=== PATIENT | male | born 1965 | race African-American/Black ===

== ENCOUNTER 2018-09-25 06:19 | Emergency (ER) | payer OTHER ==
[~2018-09-25] VITALS: Ht 182.9 cm; Wt 83.9 kg
[2018-09-25 06:26] VITALS: BP 209/138
[2018-09-25] MEDS ORDERED: FURO-570 PO (06:31)
[2018-09-25] MEDS: ASPIRIN 325 MG TAB PO ONE (06:47)
[2018-09-25] MEDS: NITROGLYCERIN 0.4 MG TAB SL ONE (06:47)
[2018-09-25 07:21] LABS: BASOPHILS # (AUTO) 0.1 K/uL (0.00-0.22); BASOPHILS % (AUTO) 1.1 % (0.0-2.0); EOSINOPHILS % (AUTO) 0.4 % (0.0-4.0); HEMATOCRIT 51.6 % (36-52); HEMOGLOBIN 17.6 g/dL (12.0-18.0); LYMPHOCYTES # (AUTO) 0.6 K/uL (2.0-11.5); LYMPHOCYTES % (AUTO) 10.1 % (20.5-51.1); MEAN CORPUSCULAR HEMOGLOBIN 31 pg (27-31); MEAN CORPUSCULAR HGB CONC 34 g/dL (33-37); MEAN CORPUSCULAR VOLUME 90.4 fL (80-94); MONOCYTES # (AUTO) 0.9 K/uL (0.8-1.0); MONOCYTES % (AUTO) 16.6 % (1.7-9.3); NEUTROPHILS % (AUTO) 71.8 % (42.2-75.2); PLATELET COUNT (AUTO) 147 K/uL (140-450); RED BLOOD CELL COUNT(AUTO) 5.71 MIL/uL (4.20-6.10); WHITE BLOOD COUNT (AUTO) 5.6 K/uL (4.8-10.8)
[2018-09-25 07:37] LABS: CARBON DIOXIDE 24.3 mmol/L (21-32); CREATININE 1.3 mg/dL (0.7-1.3); POTASSIUM 3.3 mmol/L (3.5-5.1)
[2018-09-25] MEDS: LISINOPRIL 20 MG TAB PO ONE (07:53)
[2018-09-25] MEDS: MORPHINE SULFATE 4 MG/ML SYR IM ONE (07:54)
[2018-09-25 08:15] LABS: ALBUMIN 3.7 g/dL (3.4-5.0); TOTAL BILIRUBIN 0.6 mg/dL (0.0-1.0)
[2018-09-25 08:19] LABS: CREATINE KINASE MB 2.8 ng/mL (0-3.6)
[2018-09-25] MEDS ORDERED: HEPARIN PER PHARMACY MC PRN (08:45)
[2018-09-25] MEDS: ASPIRIN 81 MG TAB.CHEW PO ONE (09:09)
[2018-09-25] MEDS: hePARIN / DEXT 5% PREMIX 250 ML IV ONE (10:02)
[2018-09-25 11:40] VITALS: BP 176/112
== END 2018-09-25 11:40 | disposition short-term general hospital (02) ==
LOC: MED 06:19
DX: I21.4 Non-ST elevation (NSTEMI) myocardial infarction (principal); I50.9 Heart failure, unspecified; I11.0 Hypertensive heart disease with heart failure; Z79.899 Other long term (current) drug therapy
CPT/HCPCS: 36415; 71045; 80053; 82550; 82553; 83690; 83880; 84484; 85025; 85610; 85730; 96365; 96366; 96372; 96375; 99285; J1644; J2270

== ENCOUNTER 2019-11-02 01:00 | Emergency (ER) | payer OTHER ==
[~2019-11-02] VITALS: Ht 182.9 cm; Wt 72.6 kg
[2019-11-02 01:00] VITALS: BP 0/0
[~2019-11-02 01:00] MED LIST: FURO-570 PO
--- NOTE | 2019-11-02 01:00 | NUR ---
PT BIBA FOR CARDIAC ARREST. CPR IN PROGRESS, PT HAS OPA IN PLACE, PT BEING BAGGED. PT BROUGHT IN BY [facility] [address]. PT HAS 20G RIGHT AC STARTED BY EMS. LAST EPI GIVEN AT 0038. ACCORDING TO EMS PT WAS WITH FRIEND AND HAD SYNCOPE EPISODE.
--- NOTE | 2019-11-02 01:00 | NUR ---
PT HAD FECAL AND URINE INCONTINANCE AT FRIENDS HOUSE. FRIEND FELT NO PULSE, STARTED CPR AND CALLED 911. WHEN EMS ARRIVED PT WAS IN V-FIB. PT WAS DEFIBULATED X3. PT WAS GIVEN 4 EPI ENROUTE, PT WAS GIVEN 2 LIDOCAINE. PT UNKNOWN MEDICAL HX FROM FRIEND. POSSIBLE CARDIAC AND CHRONIC SMOKER. PT WAS BROUGHT IN TO ROOM 10 AND TRANSFERRED WITH OUT INCIDENT AT 0059. SEE CODE SHEET FOR MORE INFO.
--- NOTE | 2019-11-02 01:38 | NUR ---
[facility] CALLED, DEPUTY ROGERIO RIVERA . ETA 1 HOUR.
--- NOTE | 2019-11-02 01:39 | NUR ---
[facility] CALLED, PT POSSIBLE CANADIT. PT .
--- NOTE | 2019-11-02 01:46 | NUR ---
FRIEND CALI HORNER THAT INICIATED CPR NUMBER [phone]. EX GIRLFRIEND NUMBER JOSE [phone]
--- NOTE | 2019-11-02 02:45 | NUR ---
CORNER AT BEDSIDE.
--- NOTE | 2019-11-02 03:01 | NUR ---
[facility]
[2019-11-02 03:20] VITALS: BP 0/0
--- NOTE | 2019-11-02 03:31 | NUR ---
CORNER LOADING DB TO THEIR GURNEY.
--- NOTE | 2019-11-02 04:32 | NUR ---
[facility] CALLED AND WAS NOTIFIED THAT PT IS A CORONERS CASE. THEY WILL CONTACT COMPUTER BUILDER FOR FURTHER INFORMATION.
== END 2019-11-02 01:21 | disposition expired ==
LOC: MED 01:00
DX: I46.9 Cardiac arrest, cause unspecified (principal); I10 Essential (primary) hypertension; F17.219 Nicotine dependence, cigarettes, with unspecified nicotine-induced disorders; Z79.899 Other long term (current) drug therapy
CPT/HCPCS: 31500; 92950; 99285